=== PATIENT | male | born 1970 | race Two or more races ===

== ENCOUNTER 2016-09-02 11:19 | Day surgery (SDC) | payer BC ==
[2016-09-01 14:53] VITALS: Ht 160 cm; Wt 66.5 kg
[~2016-09-02] VITALS: Ht 160 cm; Wt 66.5 kg
[2016-09-02] VITALS (11 sets, daily range): BP systolic 101–146; BP diastolic 61–84; PULSE 72–98; RESP 11–17
--- NOTE | 2016-09-02 08:44 | HP ---
Date/Time of Note Date/Time of Note DATE: 09/02/16 TIME: 08:41 Assessment/Plan VTE Prophylaxis VTE Prophylaxis Intervention: SCD's Assessment/Plan Chief Complaint/Hosp Course Anal fissure, prolapsing hemorrhoids. Problems: Assessment/Plan Mr. Barbosa has large, prolapsing internal hemorrhoids and a painful anal fissure. We discussed his treatment options including traditional hemorrhoidectomy, and ultrasound-guided hemorrhoid dearterialization with proctoplasty (THD). The patient has elected to proceed with dearterialization and proctoplasty due to the fact it is done without any incisions and has a quicker recovery. With regard to his fissure, I've recommended we definitively treat it at the same time as when we operate on his hemorrhoids. To do so, I' ve recommended a fissurectomy and lateral internal sphincterotomy. Informed consent was obtained after discussing the details, alternatives and risks of surgery including bleeding, infection, recurrent hemorrhoids and fecal incontinence. HPI/ROS Admit Date/Time Admit Date/Time 09/02/16 Hx of Present Illness Mr. Barbosa reports that for the past 15 years he has had "hemorrhoids." He complains of a great deal of pain with defecation associated with prolapse that requires manual reduction. He needs to do this with every bowel movement. His pain is better when the prolapse is reduced. He has rectal bleeding with bowel movements that can be heavy at times. He had a colonoscopy on 02/05/16 and this revealed hemorrhoids. He has a daily, soft BM that is always difficult to pass. ROS ROS: Constitutional: The patient denied fever and chills. Eyes: The patient denied blurred vision. Ears/Nose/Throat/Neck: The patient denied hearing loss and dysphagia. Cardiovascular: The patient denied chest pain, chest pressure and palpitations. Respiratory: The patient denied cough and dyspnea. Gastrointestinal: The patient denied nausea, vomiting, diarrhea, constipation, rectal bleeding, rectal pain and rectal itching. Genitourinary/Nephrology: The patient denied dysuria, nocturia and hematuria. Neurologic: The patient denied headache, seizure and tremor. Hematologic/Lymphatic: The patient denied easy bruising, easy bleeding and prolonged bleeding. PMH/Family/Social Past Medical History Medical History: no pertinent history Past Surgical History vasectomy Family History Significant Family History: no pertinent family hx Social History Alcohol Use: occasionally Smoking Status: Former smoker Exam/Review of Systems Exam Exam Vital Signs: Collected 05/13/2016 08:13 AM By: Alice Herrera MD, [facility] Weight 148 lbs Height 5' 3'' BMI 26.2 Temp 97.2 F tympanic RR HR 64 bpm BP 108/66 mmHg BP 2 Head Circ SpO2 Waist PE: Constitutional general appearance overall: well nourished and well developed Eyes pupils and irises overall: pupils equal, round, reactive to light and accomodation Ears/Nose/Throat lips/teeth/gingiva overall: benign lips, normal dentition and benign gingiva Neck inspection of neck overall: normal size, normal appearance and no masses Respiratory auscultation overall: breath sounds clear bilaterally respiratory effort/rhythm overall: no retractions and normal rate Cardiovascular auscultation of heart overall: regular rate, normal heart sounds and no murmurs inspection of pedal pulses overall: strong, equal bilaterally extremities overall: no edema and no clubbing Abdomen abdominal exam overall: no tenderness percussion: a normal exam rectal exam inspection: fissure posterior midline anal fissure and skin tag sentinel pile near fissure palpation: tenderness at fissure overall: good sphincter tone, no masses, no lesions ANOSCOPIC EXAM Grade 2 internal hemorrhoids and Grade 3 internal hemorrhoids Musculoskeletal gait and station overall: normal gait and normal station Neurologic mental status overall: alert and oriented Psychiatric orientation/consciousness overall: oriented to person, place and time ALICE HERRERA MD Sep 02, 2016 08:44
[~2016-09-02 11:19] MED LIST: CEFAZOLIN 1 GM INJ ONE; DIPHENHYDRAMINE 50 MG INJ IV PRN; EPHEDrine SULFATE 50 MG/5 ML SYG IV PRN; FENTAnyl 50 MCG/ML VIAL ONE; HYDROmorphONE (0.2 MG/ML) 10ML SYG IV PRN; MEPERIDINE 25 MG INJ IV PRN; METOCLOPRAMIDE 10 MG INJ IV PRN; MIDAZOLAM 1 MG/ML 2 ML INJ ONE; ONDANSETRON 4 MG INJ IV PRN; ONDANSETRON 4 MG INJ ONE; PROPOFOL 0 ML ONE; metroNIDAZOLE 500 MG/100 ML NS IVPB ONE; morphine (1 MG/ML) 10ML SYRINGE IV PRN
[2016-09-02] MEDS ORDERED: PROPOFOL 20 ML ONE (14:40)
[2016-09-02] MEDS ORDERED: LIDOCAINE 2% (SDV) 5 ML INJ ONE (14:41)
[2016-09-02] MEDS ORDERED: ROCURONIUM 50 MG INJ ONE (14:41)
[2016-09-02] MEDS ORDERED: ONDANSETRON 4 MG INJ IV PRN (15:00)
[2016-09-02] MEDS ORDERED: MEPERIDINE 25 MG INJ IV PRN (15:00)
[2016-09-02] MEDS ORDERED: HYDROmorphONE (0.2 MG/ML) 10ML SYG IV PRN ×3 (15:00)
[2016-09-02] MEDS ORDERED: EPHEDrine SULFATE 50 MG/5 ML SYG IV PRN (15:00)
[2016-09-02] MEDS ORDERED: FENTAnyl 50 MCG/ML VIAL IV PRN ×3 (15:00)
[2016-09-02] MEDS ORDERED: hydrALAzine 20 MG INJ IV PRN (15:00)
[2016-09-02] MEDS ORDERED: LABETALOL HCL 20MG INJ IV PRN (15:00)
[2016-09-02] MEDS ORDERED: LIDOCAINE 1%/EPI 30 ML INJ ONE (15:11)
[2016-09-02] MEDS ORDERED: BUPIVACAINE 0.25% (MPF) 30 ML INJ ONE (15:11)
[2016-09-02] MEDS ORDERED: DEXAMETHASONE 4 MG/ML 1 ML INJ ONE (15:26)
--- NOTE | 2016-09-02 16:23 | OPR ---
Date/Time of Note Date/Time of Note DATE: 09/02/16 TIME: 16:21 Operative Report Procedure Date: Sep 02, 2016 Preoperative Diagnosis Anal fissure, prolapsing internal hemorrhoids Postoperative Diagnosis (same) Operation Performed 1. Rigid proctosigmoidoscopy 2. Anal fissurectomy 3. Left lateral internal sphincterotomy 4. Hemorrhoid ligations using ultrasound guidance (multiple) 5. Mucosal proctoplasty for prolapse Surgeon: ALICE COLON MD Anesthesia: general Estimated Blood Loss: 10 - 50 ml's Complications: None Pt Condition Post Procedure: stable Disposition: PACU ALICE COLON MD Sep 02, 2016 16:23
[2016-09-02] MEDS ORDERED: HYDROCODONE/APAP (5/325) TAB PO PRN (16:30)
--- NOTE | 2016-09-02 17:09 | OPR ---
DATE OF OPERATION: 09/02/2016 PREOPERATIVE DIAGNOSIS: 1. Anal fissure. 2. Grade III internal hemorrhoids. 3. Rectal mucosa prolapse. POSTOPERATIVE DIAGNOSES 1. Anal fissure. 2. Grade III internal hemorrhoids. 3. Rectal mucosa prolapse. PROCEDURES PERFORMED: 1. Mucosal proctoplasty for prolapse. 2. Multiple hemorrhoidal ligations using ultrasound guidance. 3. Anal fissurectomy. 4. Lateral internal sphincterotomy. SURGEON: Alice Herrera MD. ANESTHESIA: General endotracheal anesthesia. INDICATIONS FOR PROCEDURE: Mr. Barbosa is a 46-year-old gentleman who reports for the past 15 years he has had anal pain and prolapsing hemorrhoids. 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 The various treatment options were discussed with him and elect to proceed with anal fissurectomy, lateral internal sphincterotomy, mucosal proctoplasty and hemorrhoidal ligations using ultrasound g uidance. Informed consent was obtained prior to the procedure. DESCRIPTION OF PROCEDURE: The patient was brought to the operating room and while in the [facility], general endotracheal anesthesia was established. In addition, a Chin urinary catheter was placed. Next, the patient was repositioned in the prone jackknife position on the operating ro om table. Following this, the patient's buttocks were taped apart using the standard technique and a digital rectal examination was performed using lubricated finger. The examination revealed the af orementioned right posterior chronic anal fissure which had both scarring as well as a sentinel pile . There were no other abnormalities in the patient's rectum. Next, a rigid proctosigmoidoscopy was performed to a distance of 15 cm from the anal verge and this revealed a normal appearing rectum. T he proctoscope was removed without event. Next, the patient's perineum and perianal skin were prepped and draped in the usual sterile fashion. Following this, an anal block was performed using a combination of 1% lidocaine with epinephrine a nd 0.5% Marcaine without epinephrine. The 50/50% combination of local anesthetic was utilized in borrero ch a fashion as to infiltrate the subcutaneous tissue circumferentially at the anal verge as well as the skin surrounding the anal fissure and sentinel pile in the right posterior quadrant. Once the maximum anal relaxation was achieved, a Osei retractor was utilized to examine the patient's anal canal and distal rectum more detail. This revealed an anal ulcer in the right posterior anal canal consistent with a chronic anal fissure. Bovie electrocautery was used to excise the skin edges arou nd the fissure as well as the associated sentinel pile. The base of the fissure was gently electroc auterized using Bovie electrocautery. Next, attention was turned to the left lateral anal canal wit h the Osei retractor in place. This revealed a hypertonic and hypertrophied internal anal sphinct er. We then reprepped the anoderm in this quadrant using Betadine and placed a Afton blade into an intersphincteric space and performed a closed left lateral internal sphincterotomy, divided the dis amanuel 1/4 to 1/3 internal sphincter. This allowed for relaxation of the distal third of the internal anal sphincter matching the fissurectomy length. Now that the fissurectomy and sphincterotomy were complete, Osei retractor was removed and replaced with a THD Doppler clipped surgical anoscope. U sing this device, the hemorrhoidal artery was identified in the right lateral quadrant approximately 3 to 4 cm proximal to the dentate line. Next, using 0 Vicryl suture, the blood vessels were suture ligated using ultrasound guidance in this quadrant. The same procedure was then repeated in the ri t anterior, left anterior, left lateral, left posterior and right posterior quadrants. In each of these quadrants, the THD Doppler anoscope was utilized to identify the hemorrhoidal artery in the r ectal wall approximately 3 to 4 cm proximal to dentate line which was then suture ligated using 0 Vi cryl suture. Now that all 6 hemorrhoidal arteries were identified and ligated, the THD anoscope was removed and replaced again with a Osei retractor. This identified 2 areas of mucosal prolapse an d internal hemorrhoids. This was in the right lateral and left lateral quadrants. With the Osei retractor in place, a tethering stitch was placed approximately 4 to 5 cm proximal to dentate line a nd the same suture was utilized to place a running stitch distally toward but not to include the den marrero line in the quadrant. The suture was then tied to the anchoring stitch thus pulling the redund ant mucosa inward and reapproximating the dentate line to the normal anatomical position. This was performed in both the right and left lateral quadrants where there was mucosal prolapse. Once this was accomplished, the dentate line was now in the normal anatomical position circumferentially thus confirming correction of the mucosal prolapse. Each suture line and hemorrhoidal ligation was exami jacky for bleeding and when none was noted, the Osei retractor was removed and the procedure was com plete. Additional local anesthetic was then injected to the fissurectomy and sphincterotomy site an d dry gauze applied. The patient's perianal skin was secured with paper tape. The patient was then returned to the supine position on the transportation gurney. Anesthesia was d iscontinued and he was extubated in the operating room without complication. He was then transferre d to the recovery room in stable condition. Following the procedure, the patient was given standard post-anorectal surgery convalesce instructions as well instructions to follow up with Dr. Herrera in 1 week following discharge. The patient was given prescriptions for Toradol and [place] for pain. Dictated By: ALICE ROBERTSON/STU Conf#: [id number] DID#: [id number]
== END 2016-09-02 18:20 | disposition home or self-care (01) ==
LOC: SDS 11:19
PROVIDERS: ATTEND Colon & Rectal Surgery
DX: K60.2 Anal fissure, unspecified (principal); K64.2 Third degree hemorrhoids; K62.3 Rectal prolapse
CPT/HCPCS: 45505; 46261; J0690; J1100; J2175; J2405; J3010; J2250